=== PATIENT | female | born 1940 | race Caucasian/White ===

== ENCOUNTER → 2017-05-31 | Outpatient (CLI) | payer MEDICARE, OTHER ==
--- NOTE | 2017-05-31 15:38 | REPMRS ---
Patient History The patient states she had a clinical breast exam in 06/01 Family history of prostate cancer in father at age 50 or over. Digital Woman Screen Mammo: May 31, 2017 - Exam #: [id number] Bilateral CC and MLO view(s) were taken. Technologist: Kelsey Figueroa, Technologist Prior study comparison: April 13, 2016, digital woman screen mammo performed at [facility]. March 28, 2015, digital woman screen mammo performed at [facility] to [facility]. FINDINGS: There are scattered fibroglandular densities. There has been no change in the appearance of the mammogram from the prior studies. There is a mild amount of residual fibroglandular tissue which is fairly symmetric. There is no interval development of dominant mass, architectural distortion, or clustered microcalcification suggestive of malignancy. ASSESSMENT: BI-RADS/ACR category 1 mammogram. Negative. Recommendation Routine screening mammogram in 1 year (for women over age 40). This mammogram was interpreted with the aid of an FDA-approved computer-aided dectection system. Electronically Signed By: Stevo Freire MD 05/31/17 [id number]
== END ==
LOC: M WHC 14:35
PROVIDERS: ATTEND Family Medicine Addiction Medicine
DX: Z12.31 Encounter for screening mammogram for malignant neoplasm of breast (principal)

== ENCOUNTER → 2018-06-13 | Outpatient (CLI) | payer MEDICARE, OTHER | LOC: M WHC 14:36 | DX: Z12.31 Encounter for screening mammogram for malignant neoplasm of breast (principal) | CPT/HCPCS: 77067 ==

== ENCOUNTER 2019-08-31 15:38 | Emergency (ER) | payer MEDICARE, OTHER ==
[~2019-08-31] VITALS: Ht 157.5 cm; Wt 90.9 kg
[2019-08-31] MEDS ORDERED: LIPI20TA PO (15:58)
[2019-08-31] MEDS ORDERED: TRIF5TAB PO (16:05)
[2019-08-31] MEDS ORDERED: VALI5TAB PO (16:05)
[2019-08-31] MEDS ORDERED: NORC1TAB5 PO (16:05)
[2019-08-31] MEDS ORDERED: ALLO100T PO (16:05)
[2019-08-31] MEDS ORDERED: LABE100T36 PO (16:05)
[2019-08-31] MEDS ORDERED: LABE200T32 PO ×2 (16:05)
[2019-08-31] MEDS ORDERED: ATEN50TA2 PO (16:05)
[2019-08-31] MEDS ORDERED: GLIP10TA PO (16:08)
[2019-08-31] MEDS ORDERED: ONDA4TAB6 PO (16:08)
[2019-08-31] MEDS ORDERED: PIOG1TAB55 PO (16:08)
[2019-08-31] MEDS ORDERED: LASI80TA3 PO (16:08)
[2019-08-31] MEDS ORDERED: CARB20TA PO (16:08)
[2019-08-31] MEDS ORDERED: RANI300C PO (16:08)
[2019-08-31 16:48] LABS: BASO # 0.1 10^3/uL (0.0-0.2); BASO % 0.6 % (0.0-1.0); EOS # 0.1 10^3/uL (0.0-0.5); EOS % 1.7 % (0.0-3.0); HEMATOCRIT 41.5 % (36.0-47.0); HEMOGLOBIN 13.3 g/dl (12.0-15.5); LYMPH # 2.1 10^3/uL (1.5-5.0); LYMPH % 26.8 % (24.0-44.0); MEAN CORPUSCULAR HEMOGLOBIN 27.4 pg (27.0-33.0); MEAN CORPUSCULAR VOLUME 85.4 fl (80.0-96.0); MONO # 0.7 10^3/uL (0.0-0.8); MONO % 8.8 % (0.0-5.0); NEUTROPHILS # 4.8 10^3/uL (1.5-8.5); NEUTROPHILS % 61.7 % (36.0-66.0); PLATELET COUNT, AUTOMATED 210 10^3/uL (150-450); RED BLOOD COUNT 4.86 10^6/uL (4.00-5.40); WHITE BLOOD COUNT 7.8 10^3/uL (4.0-10.0)
[2019-08-31 17:05] LABS: INFLUENZA A AMPLIFICATION NEGATIVE (NEGATIVE); INFLUENZA B AMPLIFICATION NEGATIVE (NEGATIVE)
--- NOTE | 2019-08-31 17:11 | REP ---
Portable chest x-ray: Single view. History: Dyspnea and cough. Comparison chest x-ray: August 30, 2014. Findings: Right hemidiaphragm is elevated. This is unchanged. There are is mild cardiac enlargement unchanged. The pleural angles are sharp. No infiltrate is seen. There are periarticular soft tissue ossicles about the left shoulder unchanged. There are clips in the right upper quadrant of the abdomen. Impression: Mild cardiomegaly. Elevated right hemidiaphragm again seen. Otherwise no acute disease. Electronically Signed by Bert Joel MD 08/31/2019 05:02 P
[2019-08-31 17:20] LABS: ALBUMIN 3.4 GM/DL (3.2-5.2); ALT/SGPT 27 U/L (12-78); BILIRUBIN,DIRECT 0.2 MG/DL (0.0-0.2); BILIRUBIN,TOTAL 0.5 MG/DL (0.2-1.0); BLOOD UREA NITROGEN 17 MG/DL (7-18); CALCIUM LEVEL 8.8 MG/DL (8.8-10.2); CARBON DIOXIDE LEVEL 33 MEQ/L (21-32); CHLORIDE LEVEL 90 MEQ/L (98-107); CK-MB VALUE MASS 2.1 NG/ML (<3.6); CPK CREATINE PHOSPHOKINASE 437 U/L (26-192); CREATININE FOR GFR 1.41 MG/DL (0.55-1.30); GLOMERULAR FILTRATION RATE 38.2 (>32); GLUCOSE, FASTING 262 MG/DL (70-100); MB/CK RELATIVE INDEX 0.48 (< OR =4); NT-PRO BNP 772 PG/ML (<450); POTASSIUM SERUM 4.3 MEQ/L (3.5-5.1); SODIUM LEVEL 133 MEQ/L (136-145); TOTAL PROTEIN 6.8 GM/DL (6.4-8.2); TROPONIN I < 0.02 NG/ML (< 0.10)
[2019-08-31] MEDS ORDERED: MUCI600T31 PO (18:32)
[2019-08-31 18:37] VITALS: BP 176/58
--- NOTE | 2019-08-31 21:17 | ECGEPIP ---
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
== END 2019-08-31 18:50 | disposition home or self-care (01) ==
LOC: M ED 15:38
DX: J20.9 Acute bronchitis, unspecified (principal); R00.1 Bradycardia, unspecified; I44.0 Atrioventricular block, first degree; E11.9 Type 2 diabetes mellitus without complications; F31.9 Bipolar disorder, unspecified; E66.9 Obesity, unspecified; J98.6 Disorders of diaphragm; Z79.84 Long term (current) use of oral hypoglycemic drugs; Z79.899 Other long term (current) drug therapy; Z88.0 Allergy status to penicillin; Z88.2 Allergy status to sulfonamides; Z88.1 Allergy status to other antibiotic agents; Z88.6 Allergy status to analgesic agent; Z88.8 Allergy status to other drugs, medicaments and biological substances; Z91.89 Other specified personal risk factors, not elsewhere classified

== ENCOUNTER → 2019-10-09 | Outpatient (REF) | payer MEDICARE, OTHER ==
[~2019-10-09] MED LIST: ALLO100T PO; ATEN50TA2 PO; CARB20TA PO; GLIP10TA PO; LABE100T36 PO; LABE200T32 PO; LASI80TA3 PO; LIPI20TA PO; MUCI600T31 PO; NORC1TAB5 PO; ONDA4TAB6 PO; PIOG1TAB55 PO; RANI300C PO; TRIF5TAB PO; VALI5TAB PO
[2019-10-09 14:10] LABS: BASO # 0.1 10^3/uL (0.0-0.2); BASO % 0.8 % (0.0-1.0); EOS # 0.2 10^3/uL (0.0-0.5); EOS % 2.2 % (0.0-3.0); HEMOGLOBIN 13.6 g/dl (12.0-15.5); LYMPH # 2.4 10^3/uL (1.5-5.0); LYMPH % 27.1 % (24.0-44.0); MEAN CORPUSCULAR HEMOGLOBIN 27.5 pg (27.0-33.0); MEAN CORPUSCULAR HGB CONC 31.6 g/dl (32.0-36.5); MONO # 0.7 10^3/uL (0.0-0.8); MONO % 8.5 % (0.0-5.0); NEUTROPHILS # 5.4 10^3/uL (1.5-8.5); NEUTROPHILS % 61.1 % (36.0-66.0); PLATELET COUNT, AUTOMATED 257 10^3/uL (150-450); RED BLOOD COUNT 4.94 10^6/uL (4.00-5.40); WHITE BLOOD COUNT 8.8 10^3/uL (4.0-10.0)
[2019-10-09 14:21] LABS: ALBUMIN 3.4 GM/DL (3.2-5.2); BILIRUBIN,TOTAL 0.4 MG/DL (0.2-1.0); CALCIUM LEVEL 9.7 MG/DL (8.8-10.2); CHOLESTEROL RISK RATIO 4.815 (<5); CREATININE FOR GFR 1.61 MG/DL (0.55-1.30); FREE T4 1.05 NG/DL (0.76-1.46); GLOMERULAR FILTRATION RATE 32.8 (>32); POTASSIUM SERUM 3.9 MEQ/L (3.5-5.1); THYROID STIMULATING HORMONE 4.18 uIU/ML (0.358-3.740); TOTAL PROTEIN 6.8 GM/DL (6.4-8.2)
[2019-10-09 14:23] LABS: TOTAL 25(OH) VITAMIN D 46.6 NG/ML (30.0-100.0)
[2019-10-09 14:48] LABS: HEMOGLOBIN A1c 8.2 %
== END ==
LOC: M LAB REF 12:31
PROVIDERS: ATTEND Nurse Practitioner Family
DX: I10 Essential (primary) hypertension (principal); R11.0 Nausea; M54.5 Low back pain; E11.9 Type 2 diabetes mellitus without complications

== ENCOUNTER 2020-04-14 07:43 | Emergency (ER) | payer MEDICARE, OTHER ==
[~2020-04-14] VITALS: Ht 157.5 cm; Wt 94.1 kg
[2020-04-14] MEDS ORDERED: BOOSTRIX/ADACEL VACCINE (DIPHTH/PERTUSS/ACELL/TETANUS) 0.5ML SYR IM ONE (08:00)
[2020-04-14] MEDS ORDERED: SPIR-10 PO (08:08)
[2020-04-14] MEDS ORDERED: MAGN400C PO (08:08)
[2020-04-14] MEDS ORDERED: CALC1CAP31 PO (08:08)
[2020-04-14] MEDS ORDERED: LIDOCAINE W/EPINEPHRINE 1% 20ML VIAL SC ONE (10:00)
[2020-04-14 10:30] LABS: BASO # 0.1 10^3/uL (0.0-0.2); BASO % 0.5 % (0.0-1.0); EOS # 0.1 10^3/uL (0.0-0.5); EOS % 0.4 % (0.0-3.0); HEMATOCRIT 41.2 % (36.0-47.0); HEMOGLOBIN 13.5 g/dl (12.0-15.5); LYMPH # 1.4 10^3/uL (1.5-5.0); LYMPH % 9.9 % (24.0-44.0); MEAN CORPUSCULAR HGB CONC 32.8 g/dl (32.0-36.5); MEAN CORPUSCULAR VOLUME 85.3 fl (80.0-96.0); MONO # 1.1 10^3/uL (0.0-0.8); MONO % 8.2 % (0.0-5.0); NEUTROPHILS # 10.9 10^3/uL (1.5-8.5); NEUTROPHILS % 80.6 % (36.0-66.0); PLATELET COUNT, AUTOMATED 179 10^3/uL (150-450); RED BLOOD COUNT 4.83 10^6/uL (4.00-5.40); WHITE BLOOD COUNT 13.6 10^3/uL (4.0-10.0)
[2020-04-14 11:07] LABS: ALBUMIN 3.2 GM/DL (3.2-5.2); BILIRUBIN,TOTAL 0.4 MG/DL (0.2-1.0); CALCIUM LEVEL 8.9 MG/DL (8.8-10.2); CREATININE FOR GFR 1.38 MG/DL (0.55-1.30); GLOMERULAR FILTRATION RATE 39.1 (>32); POTASSIUM SERUM 4.4 MEQ/L (3.5-5.1); TOTAL PROTEIN 6.8 GM/DL (6.4-8.2)
[2020-04-14 12:24] LABS: INR 1.02; PROTHROMBIN TIME 13.6 SECONDS (11.8-14.0)
[2020-04-14 12:25] LABS: PARTIAL THROMBOPLASTIN TIME 27.2 SECONDS (25.0-38.4)
[2020-04-14 15:54] VITALS: BP 196/81
--- NOTE | 2020-05-13 09:53 | REP ---
CERVICAL SPINE CT WITHOUT CONTRAST CLINICAL: Fall. TECHNIQUE: Axial noncontrast images from the skull base to the thoracic inlet with coronal and sagittal reformations. FINDINGS: Age-related osteopenia and advanced multilevel degenerative osteophyte complex are appreciated. Findings include endplate sclerosis/heterogeneity, osteophytosis, disc space narrowing, and facet arthropathy. There appears to be chronic 2 mm of anterolisthesis at the C4-5 level. Posterior elements and spinous processes are intact. Spinal canal is patent. Paravertebral soft tissues are grossly normal. IMPRESSION: Age-related osteopenia and advanced multilevel degenerative spondylosis. No evidence for acute fracture/compression injury or subluxation. MTDD
--- NOTE | 2020-05-13 09:54 | REP ---
NONCONTRAST HEAD CT CLINICAL: Fall. COMPARISON: None. TECHNIQUE: Axial images from the skull base to the vertex with coronal reformations. FINDINGS: Atrophy and microvascular ischemic changes with periventricular leukomalacia and microvascular ischemic changes are suggested. The ventricles are symmetrically. Freire-white differentiation is maintained. There is a small focus of high density involving the anterior high left frontal lobe (images 22-24), as well as a possible very small subdural collection (images 9-12). Findings suggest a small parenchymal contusion and follow-up in 9-12 hours may be warranted. IMPRESSION: Suspicious findings as described above require 9-12 hour follow up evaluation. MTDD
--- NOTE | 2020-05-13 09:55 | REP ---
NONCONTRAST HEAD CT CLINICAL: Follow-up suspected contusion. TECHNIQUE: Axial noncontrast images from the skull base to the vertex with coronal reformations. FINDINGS: Subtle hyperdense appearance to the cortex involving the anterior high left frontal lobe (images 22-24) unchanged from prior examination and which may reflect a small area of parenchymal contusion. No associated surrounding edema or hemorrhage, and the findings remain relatively stable and without progression. Underlying atrophy with periventricular leukomalacia and microvascular ischemic changes are again noted. No definite extra-axial fluid collection. The calvarium is intact. The paranasal sinuses and mastoid air cells are clear. IMPRESSION: Hyperdense appearance to a small area of the anterior left frontal lobe unchanged from earlier examination, which may reflect a small area of contusion based on the given history. No progression and no hemorrhage identified. MTDD
== END 2020-04-14 15:57 | disposition short-term general hospital (02) ==
LOC: EDBD 07:43 → M ED 07:43
DX: S06.370A Contusion, laceration, and hemorrhage of cerebellum without loss of consciousness, initial encounter (principal); W18.39XA Other fall on same level, initial encounter; Y92.018 Other place in single-family (private) house as the place of occurrence of the external cause; E11.9 Type 2 diabetes mellitus without complications; I10 Essential (primary) hypertension; F31.9 Bipolar disorder, unspecified; F41.9 Anxiety disorder, unspecified; M10.9 Gout, unspecified; Z79.899 Other long term (current) drug therapy; Z79.84 Long term (current) use of oral hypoglycemic drugs; Z88.0 Allergy status to penicillin; Z88.1 Allergy status to other antibiotic agents; Z88.2 Allergy status to sulfonamides; Z88.8 Allergy status to other drugs, medicaments and biological substances; Z91.048 Other nonmedicinal substance allergy status

== ENCOUNTER → 2021-04-11 | Outpatient (REF) | payer MEDICARE, OTHER ==
[~2021-04-11] MED LIST changes: +CALC1CAP31 PO; -LABE100T36 PO; +LABE100T5 PO; +MAGN400C PO; +SPIR-10 PO
[2021-04-11 19:02] LABS: MAGNESIUM LEVEL 1.7 MG/DL (1.8-2.4)
[2021-04-15 09:51] LABS: CALCIUM LEVEL 9.5 MG/DL (8.8-10.2)
== END ==
LOC: M LAB REF 17:57
PROVIDERS: ATTEND Nurse Practitioner Family
DX: E83.42 Hypomagnesemia (principal)

== ENCOUNTER → 2022-02-18 | Outpatient (CLI) | payer MEDICARE ==
[~2022-02-18] MED LIST changes: +LABE200T3 PO; -LABE200T32 PO
== END ==
LOC: M PLAIMG 11:47
PROVIDERS: ATTEND Family Medicine Addiction Medicine
DX: R19.00 Intra-abdominal and pelvic swelling, mass and lump, unspecified site (principal); Z53.9 Procedure and treatment not carried out, unspecified reason

== ENCOUNTER 2022-03-02 13:33 | Emergency (ER) | payer MEDICARE ==
[~2022-03-02] VITALS: Ht 157.5 cm; Wt 97.7 kg
[~2022-03-02 13:33] MED LIST changes: -GASTROGRAFIN SOLUTION 30ML (Q9963) ONE; -ISOVUE-370 76% 100ML VIAL ONE
[2022-03-02 15:39] VITALS: BP 167/81
== END 2022-03-02 16:16 | disposition left against medical advice (07) ==
LOC: EDBD 13:33 → M ED 13:33
DX: Z53.21 Procedure and treatment not carried out due to patient leaving prior to being seen by health care provider (principal)

== ENCOUNTER → 2022-03-02 | Outpatient (CLI) | payer MEDICARE ==
[~2022-03-02] MED LIST changes: +GASTROGRAFIN SOLUTION 30ML (Q9963) ONE; +ISOVUE-370 76% 100ML VIAL ONE
== END ==
LOC: M PLAIMG 11:23
PROVIDERS: ATTEND Family Medicine Addiction Medicine
DX: R19.00 Intra-abdominal and pelvic swelling, mass and lump, unspecified site (principal); Z90.49 Acquired absence of other specified parts of digestive tract; N28.1 Cyst of kidney, acquired; K76.89 Other specified diseases of liver
CPT/HCPCS: 74177; Q9963; Q9967